=== PATIENT | female | born 1945 | race Caucasian/White ===

== ENCOUNTER 2018-10-06 14:15 | Inpatient (IN) | payer MEDICARE, OTHER ==
[2018-10-06 14:37] LABS: CHLORIDE,CL 99 mEq/L (98-106); SODIUM,NA 137 mEq/L (136-145)
[2018-10-06] MEDS ORDERED: Zolpidem 5 MG Tab PO PRN (17:19)
[2018-10-06] MEDS ORDERED: Acetaminophen 325 MG Tab PO PRN (17:19)
[2018-10-06] MEDS ORDERED: Ondansetron 4 MG Tab.DIS PO PRN (17:19)
[2018-10-06] MEDS ORDERED: Sodium Chloride 0.9% 1,000 ML IV SCH (17:30)
[2018-10-06] MEDS ORDERED: methylPREDNISolone Sodium Succinate 125 MG/2 ML SDV IVPUSH SCH (18:00)
[2018-10-06] MEDS: Sucralfate 1 GM Tab PO SCH (18:06)
[2018-10-06] MEDS: Azithromycin 500 MG in Sodium Chloride 0.9% 250 ML IV SCH (18:07)
[2018-10-06] MEDS: Albuterol/Ipratropium 3.0-0.5 MG/3 ML Neb Soln NEB SCH (19:59)
[2018-10-06] MEDS: Simvastatin 40 MG Tab PO SCH (19:59)
[2018-10-06] MEDS: Enoxaparin 40 MG/0.4 ML Syringe SUBCUT SCH (20:00)
[2018-10-06] MEDS ORDERED: Non-Formulary Medication 1 Each (Lifitegrast [Xiidra] 1 DROP) EYEBOTH SCH (20:00)
[2018-10-06] MEDS: methylPREDNISolone Sodium Succinate 125 MG/2 ML SDV IVPUSH SCH (20:01)
[2018-10-06] MEDS: Insulin Glargine,Human Rec. Analog 100 Units/ML 3 ML Pen SUBCUT SCH (20:01)
[2018-10-07] MEDS: Potassium Chloride 10 MEQ Tab.ER PO SCH (08:07)
[2018-10-07] MEDS: Sucralfate 1 GM Tab PO SCH ×3 (08:07→17:09)
[2018-10-07] MEDS: Aspirin 81 MG Tab.EC PO SCH (08:07)
[2018-10-07] MEDS: Sertraline 25 MG Tab PO SCH (08:08)
[2018-10-07] MEDS: methylPREDNISolone Sodium Succinate 125 MG/2 ML SDV IVPUSH SCH ×2 (08:08→20:59)
[2018-10-07] MEDS: Metoprolol Succinate 25 MG Tab.ER PO SCH (08:09)
[2018-10-07] MEDS: Albuterol/Ipratropium 3.0-0.5 MG/3 ML Neb Soln NEB SCH ×4 (08:09→20:59)
[2018-10-07] MEDS: Insulin Lispro 100 Units/ML 3 ML Vial SUBCUT SCH ×5 (08:25→21:07)
[2018-10-07] MEDS ORDERED: Insulin Regular, Human 100 Units/ML 10 ML Vial SUBCUT SCH (17:00)
[2018-10-07] MEDS: Azithromycin 500 MG in Sodium Chloride 0.9% 250 ML IV SCH (18:36)
--- NOTE | 2018-10-07 20:14 | PCM.PN ---
- General Info Date of Service: 10/07/18 Admission Dx/Problem (Free Text): Acute Bronchitis Functional Status: Reports: Pain Controlled, Tolerating Diet, Ambulating - Review of Systems General: Reports: Weakness, Fatigue, Malaise. Denies: Fever HEENT: Reports: Sinus Congestion, Sore Throat, Rhinitis Pulmonary: Reports: Shortness of Breath, Cough, Sputum, Wheezing Cardiovascular: Denies: Chest Pain, Edema, Lightheadedness Gastrointestinal: Denies: Abdominal Pain, Nausea, Vomiting Genitourinary: Reports: No Symptoms Musculoskeletal: Reports: No Symptoms Skin: Reports: No Symptoms Neurological: Reports: No Symptoms - Patient Data Vitals - Most Recent: Last Vital Signs Temp 97.0 F 10/07/18 16:00 Pulse 77 10/07/18 16:00 Resp 20 10/07/18 16:00 BP 152/81 H 10/07/18 16:00 Pulse Ox 95 10/07/18 16:00 Weight - Most Recent: 180 lb 1.6 oz Lab Results Last 24 Hours: Laboratory Results - last 24 hr 10/06/18 10/07/18 Range/Units 21:05 08:05 POC Glucose 291 H 291 H (75-105) mg/dl Med Orders - Current: Current Medications Acetaminophen (Tylenol) 650 mg PO Q4H PRN PRN Reason: Pain (Mild 1-3)/fever Albuterol/Ipratropium (Duoneb 3.0-0.5 Mg/3 Ml) 3 ml NEB QIDRT [facility] Last Admin: 10/07/18 15:53 Dose: 3 ml Aspirin (Halfprin) 81 mg PO DAILY [facility] Last Admin: 10/07/18 08:07 Dose: 81 mg Enoxaparin Sodium (Lovenox) 40 mg SUBCUT BEDTIME [facility] Last Admin: 10/06/18 20:00 Dose: 40 mg Azithromycin 500 mg/ Sodium (Chloride) 250 mls @ 250 mls/hr IV Q24H [facility] Last Admin: 10/07/18 18:36 Dose: 250 mls/hr Sodium Chloride (Normal Saline) 1,000 mls @ 50 mls/hr IV ASDIRECTED [facility] Last Admin: 10/06/18 21:06 Dose: 50 mls/hr Insulin Glargine (Lantus Solostar) 50 units SUBCUT BEDTIME [facility] Last Admin: 10/06/18 20:01 Dose: 50 units Insulin Human Lispro (Humalog) 10 unit SUBCUT DAILY [facility] Last Admin: 10/07/18 08:25 Dose: 10 units Insulin Human Lispro (Humalog) 18 unit SUBCUT BID@1200,1730 [facility] Last Admin: 10/07/18 17:12 Dose: 18 units Insulin Human Lispro (Humalog) 0 unit SUBCUT 0800,1200,1730,2100 [facility]; Protocol Last Admin: 10/07/18 17:15 Dose: 15 units Methylprednisolone Sodium Succinate (Solu-Medrol) 62.5 mg IVPUSH Q12H [facility] Last Admin: 10/07/18 08:08 Dose: 62.5 mg Metoprolol Succinate (Toprol Xl) 50 mg PO DAILY [facility] Last Admin: 10/07/18 08:09 Dose: 50 mg Non-Formulary Medication (Lifitegrast [Xiidra]) 1 drop EYEBOTH BID [facility] Ondansetron HCl (Zofran Odt) 4 mg PO Q4H PRN PRN Reason: nausea, able to take PO Potassium Chloride (Klor-Con 10) 10 meq PO DAILY [facility] Last Admin: 10/07/18 08:07 Dose: 10 meq Sertraline HCl (Zoloft) 50 mg PO DAILY [facility] Last Admin: 10/07/18 08:08 Dose: 50 mg Simvastatin (Zocor) 50 mg PO BEDTIME [facility] Last Admin: 10/06/18 19:59 Dose: 50 mg Sucralfate (Carafate) 1 gm PO TIDAC [facility] Last Admin: 10/07/18 17:09 Dose: 1 gm Zolpidem Tartrate (Ambien) 5 mg PO BEDTIME PRN PRN Reason: Sleep Discontinued Medications Methylprednisolone Sodium Succinate (Solu-Medrol) 62.5 mg IVPUSH Q12H [facility] Last Admin: 10/06/18 18:37 Dose: Not Given - Exam Quality Assessment: Supplemental Oxygen General: Alert, Oriented HEENT: Mucous Membr. Moist/[place] Neck: Supple Lungs: Decreased Breath Sounds, Wheezing Cardiovascular: Regular Rate, Regular Rhythm GI/Abdominal Exam: Normal Bowel Sounds, Soft, Non-Tender Extremities: Normal Inspection Skin: Warm, Dry Neurological: No New Focal Deficit - Problem List & Annotations (1) Bronchitis SNOMED Code(s): 36680426 Code(s): J40 - BRONCHITIS, NOT SPECIFIED ACUTE OR CHRONIC Status: Acute Priority: High Current Visit: Yes - Problem List Review Problem List Initiated/Reviewed/Updated: Yes - My Orders Last 24 Hours: My Active Orders 10/07/18 17:30 Insulin Lispro [HumaLOG] See Protocol SUBCUT 0800,1200,1730,2100 10/08/18 05:11 BASIC METABOLIC PANEL,BMP [CHEM] AM C-REACTIVE PROTEIN [CHEM] AM CBC WITH AUTO DIFF [HEME] AM - Assessment Assessment:: Acute Bronchitis - Plan Plan:: Patient stable. Up at bedside. More wheezy this am, increased cough. Oxygen sats 88-89% on room air, neb given but sats not improved so oxygen started at 2 liters. WBC on admit 8.7, influenza negative. CRP is negative. Blood sugars variable. Continue Zithromax, add Rocephin. Start sliding scale insulin. Oxygen to keep sats greater than 90%. Transfer to acute inpatient. Repeat labs in am.
[2018-10-07] MEDS: Simvastatin 40 MG Tab PO SCH (20:58)
[2018-10-07] MEDS: Enoxaparin 40 MG/0.4 ML Syringe SUBCUT SCH (20:59)
[2018-10-07] MEDS: Insulin Glargine,Human Rec. Analog 100 Units/ML 3 ML Pen SUBCUT SCH (21:06)
[2018-10-07] MEDS: cefTRIAXone 1 GM Vial IVPUSH SCH (21:12)
[2018-10-08 07:38] LABS: CHLORIDE,CL 102 mEq/L (98-106); SODIUM,NA 140 mEq/L (136-145)
[2018-10-08] MEDS: Potassium Chloride 10 MEQ Tab.ER PO SCH (07:40)
[2018-10-08] MEDS: Albuterol/Ipratropium 3.0-0.5 MG/3 ML Neb Soln NEB SCH ×4 (07:40→19:43)
[2018-10-08] MEDS: Sucralfate 1 GM Tab PO SCH ×3 (07:40→17:26)
[2018-10-08] MEDS: Sertraline 25 MG Tab PO SCH (07:41)
[2018-10-08] MEDS: Aspirin 81 MG Tab.EC PO SCH (07:41)
[2018-10-08] MEDS: Metoprolol Succinate 25 MG Tab.ER PO SCH (07:41)
[2018-10-08] MEDS: methylPREDNISolone Sodium Succinate 125 MG/2 ML SDV IVPUSH SCH ×2 (07:42→19:44)
[2018-10-08] MEDS: Insulin Lispro 100 Units/ML 3 ML Vial SUBCUT SCH ×7 (07:53→21:00)
--- NOTE | 2018-10-08 09:19 | PCM.PN ---
- General Info Date of Service: 10/08/18 Admission Dx/Problem (Free Text): Acute Bronchitis Functional Status: Reports: Pain Controlled, Tolerating Diet, Ambulating - Review of Systems General: Reports: Weakness, Fatigue HEENT: Reports: Sinus Congestion, Rhinitis Pulmonary: Reports: Shortness of Breath, Cough, Wheezing. Denies: Sputum Cardiovascular: Denies: Chest Pain, Edema, Lightheadedness Gastrointestinal: Reports: Other ("feels bloated"). Denies: Abdominal Pain, Nausea, Vomiting Genitourinary: Reports: No Symptoms Musculoskeletal: Reports: No Symptoms Skin: Reports: No Symptoms Neurological: Reports: No Symptoms - Patient Data Vitals - Most Recent: Last Vital Signs Temp 98.9 F 10/08/18 00:00 Pulse 66 10/08/18 07:41 Resp 18 10/08/18 00:00 BP 167/57 H 10/08/18 07:41 Pulse Ox 95 10/08/18 00:00 Weight - Most Recent: 180 lb 1.6 oz Lab Results Last 24 Hours: Laboratory Results - last 24 hr 10/07/18 10/07/18 10/07/18 Range/Units 11:42 17:09 21:04 WBC (5.0-10.0) 10^3/uL RBC (4.00-5.50) 10^6/uL Hgb (12.0-16.0) g/dL Hct (37.0-47.0) % MCV (82.0-94.0) fL MCH (27.0-32.0) pg MCHC (33.0-38.0) g/dL RDW Coeff of Jeffrey (11.0-15.0) % Plt Count (150-400) 10^3/uL Neut % (Auto) (35-85) % Lymph % (Auto) (10-55) % Motley % (Auto) (0-16) % Eos % (Auto) (0-5) % Baso % (Auto) (0-3) % Neut # (Auto) (1.80-7.00) 10^3/uL Lymph # (Auto) (1.00-4.80) 10^3/uL Motley # (Auto) (0.00-0.80) 10^3/uL Eos # (Auto) (0.00-0.45) 10^3/uL Baso # (Auto) 10^3/uL Sodium (136-145) mEq/L Potassium (3.5-5.0) mEq/L Chloride (98-106) mEq/L Carbon Dioxide (21-32) mmol/L BUN (7-18) mg/dL Creatinine (0.6-1.0) mg/dL Est Cr Clr Drug Dosing mL/min Estimated GFR (MDRD) (>=60) mL/min Glucose (75-99) mg/dL POC Glucose 333 H 382 H 293 H (75-105) mg/dl Calcium (8.4-10.1) mg/dL C-Reactive Protein (0.2-0.8) mg/dL 10/08/18 10/08/18 10/08/18 Range/Units 06:55 06:55 07:38 WBC 13.0 H (5.0-10.0) 10^3/uL RBC 3.98 L (4.00-5.50) 10^6/uL Hgb 12.4 (12.0-16.0) g/dL Hct 36.8 L (37.0-47.0) % MCV 92.5 (82.0-94.0) fL MCH 31.2 (27.0-32.0) pg MCHC 33.7 (33.0-38.0) g/dL RDW Coeff of Jeffrey 13.3 (11.0-15.0) % Plt Count 149 L (150-400) 10^3/uL Neut % (Auto) 83.7 (35-85) % Lymph % (Auto) 12.1 (10-55) % Mot[place] % (Auto) 4.2 (0-16) % Eos % (Auto) 0 (0-5) % Baso % (Auto) 0 (0-3) % Neut # (Auto) 10.87 H (1.80-7.00) 10^3/uL Lymph # (Auto) 1.57 (1.00-4.80) 10^3/uL Motley # (Auto) 0.54 (0.00-0.80) 10^3/uL Eos # (Auto) 0.00 (0.00-0.45) 10^3/uL Baso # (Auto) 0.00 10^3/uL Sodium 140 (136-145) mEq/L Potassium 4.4 (3.5-5.0) mEq/L Chloride 102 (98-106) mEq/L Carbon Dioxide 30 (21-32) mmol/L BUN 15 (7-18) mg/dL Creatinine 0.9 (0.6-1.0) mg/dL Est Cr Clr Drug Dosing 42.64 mL/min Estimated GFR (MDRD) > 60 (>=60) mL/min Glucose 256 H D (75-99) mg/dL POC Glucose 251 H (75-105) mg/dl Calcium 8.8 (8.4-10.1) mg/dL C-Reactive Protein 0.5 (0.2-0.8) mg/dL Med Orders - Current: Current Medications Acetaminophen (Tylenol) 650 mg PO Q4H PRN PRN Reason: Pain (Mild 1-3)/fever Albuterol/Ipratropium (Duoneb 3.0-0.5 Mg/3 Ml) 3 ml NEB QIDRT [facility] Last Admin: 10/08/18 07:40 Dose: 3 ml Aspirin (Halfprin) 81 mg PO DAILY [facility] Last Admin: 10/08/18 07:41 Dose: 81 mg Ceftriaxone Sodium (Rocephin) 1 gm IVPUSH Q24H [facility] Last Admin: 10/07/18 21:12 Dose: 1 gm Enoxaparin Sodium (Lovenox) 40 mg SUBCUT BEDTIME [facility] Last Admin: 10/07/18 20:59 Dose: 40 mg Azithromycin 500 mg/ Sodium (Chloride) 250 mls @ 250 mls/hr IV Q24H [facility] Last Admin: 10/07/18 18:36 Dose: 250 mls/hr Sodium Chloride (Normal Saline) 1,000 mls @ 50 mls/hr IV ASDIRECTED [facility] Last Admin: 10/06/18 21:06 Dose: 50 mls/hr Insulin Glargine (Lantus Solostar) 50 units SUBCUT BEDTIME [facility] Last Admin: 10/07/18 21:06 Dose: 50 units Insulin Human Lispro (Humalog) 10 unit SUBCUT DAILY [facility] Last Admin: 10/08/18 07:53 Dose: 10 units Insulin Human Lispro (Humalog) 18 unit SUBCUT BID@1200,1730 [facility] Last Admin: 10/07/18 17:12 Dose: 18 units Insulin Human Lispro (Humalog) 0 unit SUBCUT 0800,1200,1730,2100 [facility]; Protocol Last Admin: 10/08/18 07:53 Dose: 9 units Methylprednisolone Sodium Succinate (Solu-Medrol) 62.5 mg IVPUSH Q12H [facility] Last Admin: 10/08/18 07:42 Dose: 62.5 mg Metoprolol Succinate (Toprol Xl) 50 mg PO DAILY [facility] Last Admin: 10/08/18 07:41 Dose: 50 mg Non-Formulary Medication (Lifitegrast [Xiidra]) 1 drop EYEBOTH BID [facility] Ondansetron HCl (Zofran Odt) 4 mg PO Q4H PRN PRN Reason: nausea, able to take PO Potassium Chloride (Klor-Con 10) 10 meq PO DAILY [facility] Last Admin: 10/08/18 07:40 Dose: 10 meq Sertraline HCl (Zoloft) 50 mg PO DAILY [facility] Last Admin: 10/08/18 07:41 Dose: 50 mg Simvastatin (Zocor) 50 mg PO BEDTIME [facility] Last Admin: 10/07/18 20:58 Dose: 50 mg Sucralfate (Carafate) 1 gm PO TIDAC [facility] Last Admin: 10/08/18 07:40 Dose: 1 gm Zolpidem Tartrate (Ambien) 5 mg PO BEDTIME PRN PRN Reason: Sleep Discontinued Medications Methylprednisolone Sodium Succinate (Solu-Medrol) 62.5 mg IVPUSH Q12H [facility] Last Admin: 10/06/18 18:37 Dose: Not Given - Exam Quality Assessment: Supplemental Oxygen General: Alert, Oriented HEENT: Mucous Membr. Moist/[place] Neck: Supple Lungs: Decreased Breath Sounds, Wheezing Cardiovascular: Regular Rate, Regular Rhythm GI/Abdominal Exam: Normal Bowel Sounds, Soft, Non-Tender Extremities: Normal Inspection, No Pedal Edema Skin: Warm, Dry Neurological: No New Focal Deficit - Problem List & Annotations (1) Bronchitis SNOMED Code(s): 47334168 Code(s): J40 - BRONCHITIS, NOT SPECIFIED ACUTE OR CHRONIC Status: Acute Priority: High Current Visit: Yes - Problem List Review Problem List Initiated/Reviewed/Updated: Yes - My Orders Last 24 Hours: My Active Orders 10/07/18 17:30 Insulin Lispro [HumaLOG] See Protocol SUBCUT 0800,1200,1730,2100 10/07/18 20:16 Patient Status [ADT] Routine 10/07/18 20:30 cefTRIAXone [Rocephin] 1 gm IVPUSH Q24H - Assessment Assessment:: Acute Bronchitis - Plan Plan:: Patient stable. Up at bedside. More wheezy this am, increased cough. Oxygen sats 88-89% on room air, neb given but sats not improved so oxygen started at 2 liters. WBC on admit 8.7, influenza negative. CRP is negative. Blood sugars variable. Continue Zithromax, add Rocephin. Start sliding scale insulin. Oxygen to keep sats greater than 90%. Transfer to acute inpatient. Repeat labs in am. 10-08-2018 Patient resting comfortably at the bedside. Still requiring oxygen, did attempt to wean off this am but sats dropped to 85%. Blood sugars have been consistently greater than 250. WBC this am 13, likely increased due to steroids as CRP is negative. blood pressure 167/57 this am. Will continue with IV antibiotics. Continue sliding scale. Attempt to wean off oxygen as able. Inappropriate for discharge.
[2018-10-08] MEDS: Azithromycin 500 MG in Sodium Chloride 0.9% 250 ML IV SCH (18:00)
[2018-10-08] MEDS: cefTRIAXone 1 GM Vial IVPUSH SCH (19:43)
[2018-10-08] MEDS: Simvastatin 40 MG Tab PO SCH (19:43)
[2018-10-08] MEDS: Enoxaparin 40 MG/0.4 ML Syringe SUBCUT SCH (19:44)
[2018-10-08] MEDS: Insulin Glargine,Human Rec. Analog 100 Units/ML 3 ML Pen SUBCUT SCH (19:52)
[2018-10-09] MEDS: Potassium Chloride 10 MEQ Tab.ER PO SCH (08:06)
[2018-10-09] MEDS: Sertraline 25 MG Tab PO SCH (08:06)
[2018-10-09] MEDS: Metoprolol Succinate 25 MG Tab.ER PO SCH (08:06)
[2018-10-09] MEDS: methylPREDNISolone Sodium Succinate 125 MG/2 ML SDV IVPUSH SCH ×2 (08:07→19:41)
[2018-10-09] MEDS: Aspirin 81 MG Tab.EC PO SCH (08:07)
[2018-10-09] MEDS: Albuterol/Ipratropium 3.0-0.5 MG/3 ML Neb Soln NEB SCH ×4 (08:07→19:43)
[2018-10-09] MEDS: Sucralfate 1 GM Tab PO SCH ×3 (08:07→16:56)
[2018-10-09] MEDS: Insulin Lispro 100 Units/ML 3 ML Vial SUBCUT SCH ×7 (08:16→20:04)
--- NOTE | 2018-10-09 14:44 | PN ---
DATE: 10/09/2018 S: Phuong is doing better. She still remains afebrile. Still coughing frequently, but she has been able to be taken off O2 by now, and she sits in the room at rest with saturations at 93%-94% on room air. We are going to get her up and ambulate and see how she does with exertion. Still feels tight, but overall better. O: GENERAL: On exam, she is pleasant and cooperative. NECK: Veins are flat. LUNGS: Sounds still with expiratory wheezing, but improved air movement in all lung [place]. No audible rales. CARDIAC: Tones are regular. ABDOMEN: Soft and nontender. EXTREMITIES: No peripheral edema seen. ASSESSMENT: 1. ACUTE BRONCHITIS. 2. CHRONIC OBSTRUCTIVE PULMONARY DISEASE EXACERBATION. P: Expect the patient to continue to improve and home by tomorrow. Off O2. We talked to her about her smoking and discussed options for quitting. Recommend when she is back to her baseline, we get formal pulmonary function studies on her, and she is in agreement. SANTANA/RENE /[id number]
[2018-10-09] MEDS: Azithromycin 500 MG in Sodium Chloride 0.9% 250 ML IV SCH (17:37)
[2018-10-09] MEDS: Simvastatin 40 MG Tab PO SCH (19:39)
[2018-10-09] MEDS: Enoxaparin 40 MG/0.4 ML Syringe SUBCUT SCH (19:43)
[2018-10-09] MEDS: cefTRIAXone 1 GM Vial IVPUSH SCH (19:43)
[2018-10-09] MEDS: Insulin Glargine,Human Rec. Analog 100 Units/ML 3 ML Pen SUBCUT SCH (20:01)
[2018-10-10] MEDS: Albuterol/Ipratropium 3.0-0.5 MG/3 ML Neb Soln NEB SCH ×2 (07:44→11:36)
[2018-10-10] MEDS: Potassium Chloride 10 MEQ Tab.ER PO SCH (07:44)
[2018-10-10] MEDS: Sucralfate 1 GM Tab PO SCH ×2 (07:44→11:36)
[2018-10-10] MEDS: Sertraline 25 MG Tab PO SCH (07:44)
[2018-10-10] MEDS: Metoprolol Succinate 25 MG Tab.ER PO SCH (07:45)
[2018-10-10] MEDS: Aspirin 81 MG Tab.EC PO SCH (07:45)
[2018-10-10] MEDS: methylPREDNISolone Sodium Succinate 125 MG/2 ML SDV IVPUSH SCH (07:45)
[2018-10-10 07:46] VITALS: BP 160/69
[2018-10-10] MEDS: Insulin Lispro 100 Units/ML 3 ML Vial SUBCUT SCH ×3 (07:53→11:39)
--- NOTE | 2018-10-10 19:14 | PCM.DCSUM1 ---
Discharge Summary - Hospital Course Free Text/Narrative:: Patient presented to clinic and seen by Dr. Ward for increased nasal congestion , moist cough and headache. Has been feeling more short of breath. No fevers. Noted increased wheezing. Admitted for COPD Exacerbation, further work up. Started on IV antibiotics, nebulizer treatments and steroids. Diagnosis: Stroke: No Modified Luce Scale: No Symptoms at All Modified Luce Scale Score: 0 - Discharge Data Discharge Date: 10/10/18 Discharge Disposition: Home, Self-Care 01 Condition: Good - Discharge Diagnosis/Problem(s) (1) Bronchitis SNOMED Code(s): 58171918 ICD Code: J40 - BRONCHITIS, NOT SPECIFIED ACUTE OR CHRONIC Status: Acute Priority: High Current Visit: Yes - Patient Summary/Data Complications: none Consults: Consultations 10/06/18 17:19 Respiratory Care Assess and Treatment [CONS] Routine Hospital Course: Patient has made slow improvement of overall status. Did become hypoxic and required oxygen at 2 liters for about 48 hours before able to wean off. No fevers. Is now up and ambulating and tolerating well. Chest is less tight, does still have occasional expiratory wheezing. Still occasional cough. Blood sugars have been running high, started sliding scale with novolog. WBC 13.0, also on steroids. CRP has remained negative. Will discharge home on oral Ceftin, duonebs. Follow up with Dr. Ward in 10 days. - Patient Instructions Diet: Usual Diet as Tolerated Activity: As Tolerated - Discharge Plan *PRESCRIPTION DRUG MONITORING PROGRAM REVIEWED*: No *COPY OF PRESCRIPTION DRUG MONITORING REPORT IN PATIENT CIRO: No Prescriptions/Med Rec: Albuterol/Ipratropium [DuoNeb 3.0-0.5 MG/3 ML] 3 ml NEB QIDRT 7 Days #28 neb Cefuroxime Axetil [Ceftin] 250 mg PO BID #14 tablet Home Medications: Home Meds Aspirin [Halfprin] 81 mg PO DAILY 07/26/13 [History] Calcium Carbonate/Vitamin D3 [Calcium 600 + Vit D Tablet] 1 each PO BID [History] Magnesium 250 mg PO BID 07/26/13 [History] Metoprolol Succinate [Toprol XL] 50 mg PO DAILY 07/26/13 [History] Potassium 99 mg PO DAILY 07/26/13 [History] Rosuvastatin [Crestor] 20 mg PO BEDTIME 07/26/13 [History] Carboxymethylcellulose Sodium [Refresh Tears 0.5%] 2 - 3 drop EYEBOTH DAILY PRN 08/10/14 [History] Cyanocobalamin (Vitamin B-12) [Vitamin B-12] 5,000 mcg SL DAILY 08/10/14 [ History] Beta-Carotene(A) W-C & E/Min [Vision Vitamins] 1 tab PO BID 11/26/17 [History] Insulin Aspart [NovoLOG] 10 unit SUBCUT ASDIRECTED 11/26/17 [History] Insulin Detemir [Levemir] 50 unit SUBCUT BEDTIME 11/26/17 [History] Lifitegrast [Xiidra] 1 drop EYEBOTH BID 11/26/17 [History] Sertraline HCl 50 mg PO DAILY 11/26/17 [History] Betamethasone Dipropionate 1 bandage .XX ASDIRECTED 12/18/17 [History] Sucralfate 1 gm PO TID 12/18/17 [History] Albuterol/Ipratropium [DuoNeb 3.0-0.5 MG/3 ML] 3 ml NEB QIDRT 7 Days #28 neb 04/20 [Rx] Cefuroxime Axetil [Ceftin] 250 mg PO BID #14 tablet 10/10/18 [Rx] Patient Handouts: Chronic Obstructive Pulmonary Disease Exacerbation, Acute Bronchitis, Adult Referrals: Ricardo Ward MD [Primary Care Provider] - (Follow up with Dr. Ward in 10 days ) - Discharge Summary/Plan Comment DC Time >30 min.: No - General Info Date of Service: 10/10/18 Admission Dx/Problem (Free Text: Acute Bronchitis Functional Status: Reports: Pain Controlled, Tolerating Diet, Ambulating - Review of Systems General: Reports: Fatigue. Denies: Fever, Weakness, Malaise HEENT: Reports: Rhinitis Pulmonary: Reports: Shortness of Breath, Cough, Wheezing Cardiovascular: Denies: Chest Pain, Edema, Lightheadedness Gastrointestinal: Denies: Abdominal Pain, Nausea, Vomiting Genitourinary: Reports: No Symptoms Musculoskeletal: Reports: No Symptoms Skin: Reports: No Symptoms Neurological: Reports: No Symptoms Psychiatric: Reports: No Symptoms - Patient Data Vitals - Most Recent: Last Vital Signs Temp 97.1 F 10/10/18 08:00 Pulse 72 10/10/18 08:00 Resp 20 10/10/18 08:00 BP 160/69 H 10/10/18 08:00 Pulse Ox 95 10/10/18 08:00 Weight - Most Recent: 180 lb 1.6 oz Lab Results - Last 24 hrs: Laboratory Results - last 24 hr 10/09/18 10/10/18 10/10/18 Range/Units 19:39 07:40 11:32 POC Glucose 279 H 182 H 257 H (75-105) mg/dl Med Orders - Current: Current Medications Acetaminophen (Tylenol) 650 mg PO Q4H PRN PRN Reason: Pain (Mild 1-3)/fever Albuterol/Ipratropium (Duoneb 3.0-0.5 Mg/3 Ml) 3 ml NEB QIDRT [facility] Last Admin: 10/10/18 11:36 Dose: 3 ml Aspirin (Halfprin) 81 mg PO DAILY [facility] Last Admin: 10/10/18 07:45 Dose: 81 mg Ceftriaxone Sodium (Rocephin) 1 gm IVPUSH Q24H [facility] Last Admin: 10/09/18 19:43 Dose: 1 gm Enoxaparin Sodium (Lovenox) 40 mg SUBCUT BEDTIME [facility] Last Admin: 10/09/18 19:43 Dose: 40 mg Azithromycin 500 mg/ Sodium (Chloride) 250 mls @ 250 mls/hr IV Q24H [facility] Last Admin: 10/09/18 17:37 Dose: 250 mls/hr Sodium Chloride (Normal Saline) 1,000 mls @ 50 mls/hr IV ASDIRECTED [facility] Last Admin: 10/06/18 21:06 Dose: 50 mls/hr Insulin Glargine (Lantus Solostar) 50 units SUBCUT BEDTIME [facility] Last Admin: 10/09/18 20:01 Dose: 50 units Insulin Human Lispro (Humalog) 10 unit SUBCUT DAILY [facility] Last Admin: 10/09/18 08:16 Dose: 10 units Insulin Human Lispro (Humalog) 18 unit SUBCUT BID@1200,1730 [facility] Last Admin: 10/10/18 11:38 Dose: 18 units Insulin Human Lispro (Humalog) 0 unit SUBCUT 0800,1200,1730,2100 [facility]; Protocol Last Admin: 10/10/18 11:39 Dose: 9 units Methylprednisolone Sodium Succinate (Solu-Medrol) 62.5 mg IVPUSH Q12H [facility] Last Admin: 10/10/18 07:45 Dose: 62.5 mg Metoprolol Succinate (Toprol Xl) 50 mg PO DAILY [facility] Last Admin: 10/10/18 07:45 Dose: 50 mg Non-Formulary Medication (Lifitegrast [Xiidra]) 1 drop EYEBOTH BID [facility] Ondansetron HCl (Zofran Odt) 4 mg PO Q4H PRN PRN Reason: nausea, able to take PO Potassium Chloride (Klor-Con 10) 10 meq PO DAILY [facility] Last Admin: 10/10/18 07:44 Dose: 10 meq Sertraline HCl (Zoloft) 50 mg PO DAILY [facility] Last Admin: 10/10/18 07:44 Dose: 50 mg Simvastatin (Zocor) 50 mg PO BEDTIME [facility] Last Admin: 10/09/18 19:39 Dose: 50 mg Sucralfate (Carafate) 1 gm PO TIDAC [facility] Last Admin: 10/10/18 11:36 Dose: 1 gm Zolpidem Tartrate (Ambien) 5 mg PO BEDTIME PRN PRN Reason: Sleep Discontinued Medications Methylprednisolone Sodium Succinate (Solu-Medrol) 62.5 mg IVPUSH Q12H [facility] Last Admin: 10/06/18 18:37 Dose: Not Given - Exam General: Reports: Alert, Oriented HEENT: Reports: Mucous Membr. Moist/[place] Neck: Reports: Supple Lungs: Reports: Normal Respiratory Effort, Decreased Breath Sounds, Wheezing Cardiovascular: Reports: Regular Rate, Regular Rhythm GI/Abdominal Exam: Normal Bowel Sounds, Soft, Non-Tender Extremities: Normal Inspection, No Pedal Edema Skin: Reports: Warm, Dry Neurological: Reports: No New Focal Deficit
== END 2018-10-10 13:00 | disposition home or self-care (01) | DRG 202 ==
LOC: CC.MS 14:15 → CC.FCMC 14:15 → UNDOADMIN 15:05 → CC.MS 15:05 → INTOOBSV 17:19 → CC.MS 20:16 → OBSVTOIN 10-07 20:16
PROVIDERS: ADMIT Family Medicine; ATTEND Family Medicine
DX: J20.9 Acute bronchitis, unspecified (principal); J44.0 Chronic obstructive pulmonary disease with (acute) lower respiratory infection; J44.1 Chronic obstructive pulmonary disease with (acute) exacerbation; F32.9 Major depressive disorder, single episode, unspecified; I10 Essential (primary) hypertension; E78.5 Hyperlipidemia, unspecified; M17.10 Unilateral primary osteoarthritis, unspecified knee; E11.9 Type 2 diabetes mellitus without complications; M16.9 Osteoarthritis of hip, unspecified; M81.0 Age-related osteoporosis without current pathological fracture; M79.7 Fibromyalgia; Z87.891 Personal history of nicotine dependence
CPT/HCPCS: 36415; 71046; 80048; 82962; 85025; 85379; 86140; 87804; 94640; 99219; A9270-GY; J0456; J0696; J1650; J1815; J1815-GY; J2930; J7030; J7050; J7620-GY

== ENCOUNTER 2018-11-21 10:24 | Emergency (ER) | payer MEDICARE, OTHER ==
[2018-11-21 10:35] VITALS: BP 132/66
--- NOTE | 2018-11-21 11:37 | EDM.PDOC ---
ED HPI GENERAL MEDICAL PROBLEM - General Chief Complaint: General Stated Complaint: leg pain Time Seen by Provider: 11/21/18 10:40 Source of Information: Reports: Patient History Limitations: Reports: No Limitations - History of Present Illness INITIAL COMMENTS - FREE TEXT/NARRATIVE: Patient is a 73 year old female that presents to the ER. patient reports that last night she was walking with her walker when the walker got tripped in the rug. Patient reports that she fell forward. Patient denies hitting her head. Patient denies loc. She reports having right lateral chest wall pain over the rib. Patient reports left anterior thigh pain, left anterior ankle pain, right greater toe pain. Patient denies loc, hittgin her head, neck pain, neck stiffness, soa, abd pain, urinary/bowel incontinence, back pain, hip/pelvis pain. Onset Date: 11/20/18 Duration: Day(s): (1) Location: Reports: Chest, Lower Extremity, Left, Lower Extremity, Right Front/Back Body Image: 1 - mild pain 2 - mild pain 3 - pain, tenderness. 4 - pain, tenderness, ecchymosis. Quality: Reports: Ache Severity: Mild Improves with: Reports: None Worsens with: Reports: None Associated Symptoms: Denies: Confusion, Chest Pain, Cough, cough w sputum, Diaphoresis, Fever/Chills, Headaches, Loss of Appetite, Malaise, Nausea/Vomiting , Rash, Seizure, Shortness of Breath, Syncope, Weakness Right Ankle Pain Score (Numeric/FACES): 3 - Related Data Allergies Allergy/AdvReac Type Severity Reaction Status Date / Time cyclobenzaprine Allergy Cannot Verified 11/21/18 10:25 Remember gabapentin Allergy Cannot Verified 11/21/18 10:25 Remember soap [From Betadine] Allergy Swelling Verified 11/21/18 10:25 tramadol AdvReac Mild Nausea Verified 11/21/18 10:25 doxycycline AdvReac Nausea Verified 11/21/18 10:25 Home Meds: Home Meds Aspirin [Halfprin] 81 mg PO DAILY 07/26/13 [History] Calcium Carbonate/Vitamin D3 [Calcium 600 + Vit D Tablet] 1 each PO BID [History] Magnesium 250 mg PO BID 07/26/13 [History] Metoprolol Succinate [Toprol XL] 50 mg PO DAILY 07/26/13 [History] Potassium 99 mg PO DAILY 07/26/13 [History] Rosuvastatin [Crestor] 20 mg PO BEDTIME 07/26/13 [History] Carboxymethylcellulose Sodium [Refresh Tears 0.5%] 2 - 3 drop EYEBOTH DAILY PRN 08/10/14 [History] Cyanocobalamin (Vitamin B-12) [Vitamin B-12] 5,000 mcg SL DAILY 08/10/14 [ History] Beta-Carotene(A) W-C & E/Min [Vision Vitamins] 1 tab PO BID 11/26/17 [History] Insulin Aspart [NovoLOG] 10 unit SUBCUT ASDIRECTED 11/26/17 [History] Insulin Detemir [Levemir] 50 unit SUBCUT BEDTIME 11/26/17 [History] Lifitegrast [Xiidra] 1 drop EYEBOTH BID 11/26/17 [History] Sertraline HCl 50 mg PO DAILY 11/26/17 [History] Betamethasone Dipropionate 1 bandage .XX ASDIRECTED 12/18/17 [History] Sucralfate 1 gm PO TID 12/18/17 [History] Albuterol/Ipratropium [DuoNeb 3.0-0.5 MG/3 ML] 3 ml NEB QIDRT 7 Days #28 neb 04/20 [Rx] Cefuroxime Axetil [Ceftin] 250 mg PO BID #14 tablet 10/10/18 [Rx] Famotidine 40 mg PO BEDTIME 11/02/18 [History] Pantoprazole Sodium 40 mg PO DAILY 11/02/18 [History] metFORMIN HCl [Metformin HCl] 1,000 mg PO BID 11/02/18 [History] Past Medical History HEENT History: Reports: Impaired Vision Cardiovascular History: Reports: High Cholesterol Gastrointestinal History: Reports: Gastritis [employer] MANAGER History: Reports: Other (See Below) Other [employer] 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 Musculoskeletal History: Reports: Fibromyalgia, Osteoarthritis, RA Endocrine/Metabolic History: Reports: Diabetes, Type II Oncologic (Cancer) History: Reports: Malignant Melanoma, Other (See Below) Other Oncologic History: removed lesions on face last year Social & Family History - Family History Family Medical History: Noncontributory Cardiac: Reports: [place] Oncologic: Reports: Other (See Below) - Tobacco Use Smoking Status *Q: Current Some Day Smoker Years of Tobacco use: 50 Packs/Tins Daily: 0.5 - Caffeine Use Caffeine Use: Reports: Coffee ED ROS GENERAL - Review of Systems Review Of Systems: See Below Constitutional: Reports: No Symptoms HEENT: Reports: No Symptoms Respiratory: Reports: No Symptoms Cardiovascular: Reports: No Symptoms Endocrine: Reports: No Symptoms GI/Abdominal: Reports: No Symptoms : Reports: No Symptoms Musculoskeletal: Reports: Foot Pain (right greater toe pain), Joint Pain (left anterior ankle pain), Other (right lateral chestwall pain over rib. Left anterior thigh pain) Skin: Reports: Bruising (right greater toe.), Wound (mild abrasion right elbow. UTD tetanus. ) Neurological: Reports: No Symptoms Psychiatric: Reports: No Symptoms Hematologic/Lymphatic: Reports: No Symptoms Immunologic: Reports: No Symptoms ED EXAM, GENERAL - Physical Exam Exam: See Below Exam Limited By: No Limitations General Appearance: Alert, WD/WN, No Apparent Distress Eye Exam: Bilateral Eye: EOMI, Normal Inspection, PERRL Ears: Normal External Exam, Normal Canal, Hearing Grossly Normal, Normal TMs Ear Exam: Bilateral Ear: Auricle Normal, Canal Normal, TM normal Nose: Normal Inspection, Normal Mucosa, No Blood Throat/Mouth: Normal Inspection, Normal Lips, Normal Teeth, Normal Gums, Normal Oropharynx, Normal Voice, No Airway Compromise Head: Atraumatic, Normocephalic Neck: Normal Inspection, Supple, Non-Tender, Full Range of Motion Respiratory/Chest: No Respiratory Distress, Lungs Clear, Normal Breath Sounds, No Accessory Muscle Use, Other (right lateral chest tenderness over rib. No flail chest. ). No: Respiratory Distress, Decreased Breath Sounds, Crackles, Rales, Rhonchi, Wheezing, Stridor, Pleural Rub, Accessory Muscle Use, Retractions, Splinting, Prolonged Expiration Cardiovascular: Normal Peripheral Pulses, Regular Rate, Rhythm, No Edema, No Gallop, No JVD, No Murmur, No Rub Peripheral Pulses: 2+: Radial (L), Radial (R), Popliteal (L), Popliteal (R), Posterior Tibial (L), Posterior Tibial (R), Dorsalis Pedis (L), Dorsalis Pedis ( R) GI/Abdominal: Normal Bowel Sounds, Soft, Non-Tender, No Organomegaly, No Distention, No Abnormal Bruit, No Mass, Pelvis Stable Back Exam: Normal Inspection, Full Range of Motion. No: CVA Tenderness (L), CVA Tenderness (R), Decreased Range of Motion, Muscle Spasm, Paraspinal Tenderness, Vertebral Tenderness Extremities: Normal Range of Motion, No Pedal Edema, Normal Capillary Refill, Other (right greater toe pain, tenderness, ecchymosis. Left anterior ankle, left anterior thigh pain, mildly tender. ). No: Limited Range of Motion Neurological: Alert, Oriented, CN II-XII Intact, Normal Cognition, Normal Gait ( with walker. Patient was able to ambulate in the ER with walker without difficulty. ), No Motor/Sensory Deficits Psychiatric: Normal Affect, Normal Mood Skin Exam: Warm, Dry, Intact, Normal Color, No Rash Lymphatic: No Adenopathy Course - Vital Signs Last Recorded V/S: Last Vital Signs Temp 97.3 F 11/21/18 10:26 Pulse 75 11/21/18 10:26 Resp 18 11/21/18 10:26 BP 132/66 11/21/18 10:26 Pulse Ox 96 11/21/18 10:26 - Orders/Labs/Meds Orders: Active Orders 24 hr Category Date Time Status Incentive Spirometry [RT Incentive Spirometry] [RC] Care 11/21/18 11:51 Active ASDIRECTED Ankle Min 3V Lt [CR] Stat Exams 11/21/18 10:40 Taken Chest 2V [CR] Stat Exams 11/21/18 10:45 Taken Femur Min 2V Lt [CR] Stat Exams 11/21/18 10:40 Taken Foot Comp Min 3V Rt [CR] Stat Exams 11/21/18 10:40 Taken - Radiology Interpretation Free Text/Narrative:: Right foot: Greater toe fx. Left ankle: No fx Left femur: no fx Departure - Departure Time of Disposition: 11:47 Disposition: Home, Self-Care 01 Condition: Fair Clinical Impression: Fracture of right great toe Qualifiers: Encounter type: initial encounter Fracture type: closed Phalanx: proximal Fracture alignment: nondisplaced Qualified Code(s): S92.414A - Nondisplaced fracture of proximal phalanx of right great toe, initial encounter for closed fracture Fall Qualifiers: Encounter type: initial encounter Qualified Code(s): W19.XXXA - Unspecified fall, initial encounter Contusion Qualifiers: Encounter type: initial encounter Contusion area: thigh Laterality: left Qualified Code(s): S70.12XA - Contusion of left thigh, initial encounter Rib contusion Qualifiers: Encounter type: initial encounter Laterality: right Qualified Code(s): S20.211A - Contusion of right front wall of thorax, initial encounter - Discharge Information *PRESCRIPTION DRUG MONITORING PROGRAM REVIEWED*: No *COPY OF PRESCRIPTION DRUG MONITORING REPORT IN PATIENT CIRO: No Instructions: Toe Fracture, [id number], Rib Fracture, Contusion, [id number] , Cast or Splint Care, Adult Referrals: PCP,Unknown [Primary Care Provider] - Forms: ED Department Discharge Additional Instructions: Followup with orthopedic in [facility] Followup with your primary care provider Return to the ER for worsening of condition or any emergent concerns Ice to painful areas Rest Elevate Tylenol for pain Incentive Spirometer every 2 hours while awake to help prevent pneumonia Boot to the foot - My Orders Last 24 Hours: My Active Orders 11/21/18 10:40 Ankle Min 3V Lt [CR] Stat Femur Min 2V Lt [CR] Stat Foot Comp Min 3V Rt [CR] Stat 11/21/18 10:45 Chest 2V [CR] Stat 11/21/18 11:51 Incentive Spirometry [RT Incentive Spirometry] [RC] ASDIRECTED - Assessment/Plan Last 24 Hours: My Active Orders 11/21/18 10:40 Ankle Min 3V Lt [CR] Stat Femur Min 2V Lt [CR] Stat Foot Comp Min 3V Rt [CR] Stat 11/21/18 10:45 Chest 2V [CR] Stat 11/21/18 11:51 Incentive Spirometry [RT Incentive Spirometry] [RC] ASDIRECTED Plan: PLEASE SEE RN NOTE FOR PFSH.
== END 2018-11-21 12:15 | disposition home or self-care (01) ==
LOC: CC.ED 10:24
DX: S92.414A Nondisplaced fracture of proximal phalanx of right great toe, initial encounter for closed fracture (principal); S70.12XA Contusion of left thigh, initial encounter; S20.211A Contusion of right front wall of thorax, initial encounter; M06.9 Rheumatoid arthritis, unspecified; M19.90 Unspecified osteoarthritis, unspecified site; E11.9 Type 2 diabetes mellitus without complications; F17.210 Nicotine dependence, cigarettes, uncomplicated; Z88.8 Allergy status to other drugs, medicaments and biological substances; Z88.5 Allergy status to narcotic agent; Z79.82 Long term (current) use of aspirin; Z79.899 Other long term (current) drug therapy; Z79.4 Long term (current) use of insulin; W18.09XA Striking against other object with subsequent fall, initial encounter
CPT/HCPCS: 71046; 73610-LT; 73630-RT; 99283-25; 99284